=== PATIENT | male | born 1995 | race Caucasian/White ===

== ENCOUNTER 2021-03-11 13:00 | Emergency (ER) | payer BC, OTHER ==
[~2021-03-11] VITALS: Ht 180.3 cm; Wt 100.0 kg
[2021-03-11] MEDS ORDERED: TETANUS,DIPTH,PERTUSS P/F (BOOSTRIX) 0.5 ML VIAL IM ONE (13:30)
[2021-03-11] MEDS ORDERED: LIDOCAINE 1% INJ 20 ML 20 ML VIAL INJ ONE (13:30)
--- NOTE | 2021-03-11 13:55 | ED Psychosocial ---
General Chief Complaint: Psych/Social Disorder Stated Complaint: SUICIDE ATTEMPT Nursing Triage Note: PT AMBULATE TO ROOM FS04 WITH [facility] WITH C/O SUICIDE ATTEMPT. PT STATES THAT HE CUT HIS LEFT WRIST IN ATTEMPT TO KILL SELF. PT STATES THAT HE WAS HELP AND WANTS HELP. INFORMED OF THE ROLE OF THE ED AND THAT THE ED PROVIDES THE MEDICAL SCREENING AND THEN [facility] WILL BE CONTACTED FOR THE PSYCH SCREENING. PT INFORMED THAT THIS ED CANNOT CONTROL THE AMOUNT OF TIME IT WILL TAKE FOR MH SCREENING AND THAT THIS TIMEFRAME IS UNDER THE CONTROL OF [facility]. Source: patient, EMS History of Present Illness Date Seen by Provider: Mar 11, 2021 Time Seen by Provider: 13:08 Initial Comments 25-year-old woman presenting with EMS after having attempted to commit suicide by cutting his left wrist. He states he was using a kitchen knife after trying to. When it would not bleed enough to kill him and kept clogging he called 911. EMS picked him up and he states that he was interested in getting help. He has had a prior suicide attempt by taking pills when he was 18. He states that his wanted him to sign worse for friends and was a triggering factor for him. He has a adopted son with her as well as they had a daughter together. The son is 5 years old the daughter is 1-year-old. He was stressed and upset about not being in the same home with them anymore. He denies taking any drugs or alcohol today. He states that he just tried cutting his wrists because of her when it would not bleed Clotting he called for help. He still depressed and still wants help. He had been on antidepressants about 6 months ago but only took them for a month or 2. He does not have a current psychiatrist or therapist that he see s. Timing/Duration: just prior to arrival Severity: mild Associated Symptoms: anxiety, injury (cut left wrist), suicidal ideation Allergies and Home Medications Allergies Coded Allergies: No Known Allergies (Verified Allergy, Unknown, 03/11/21) Patient Home Medication List Home Medication List Reviewed: Yes Review of Systems Constitutional: No chills, No fever EENTM: no symptoms reported Respiratory: no symptoms reported Cardiovascular: no symptoms reported Gastrointestinal: no symptoms reported Genitourinary: no symptoms reported Musculoskeletal: other (mild pain at site of laceration) Skin: other (superficial laceration to left wrist) Psychiatric/Neurological: Depressed, Emotional Problems; Denies Numbness, Denies Paresthesia Past Sajkibf-Mrdvie-Gappzd Hx Patient Social History Tobacco Use?: No Smoking Status: Never a Smoker Smokeless Tobacco Frequency: Never a User Substance use?: No Alcohol Use?: No Pt feels they are or have been: No Immunizations Up To Date First/Initial COVID19 Vaccinat: 11/2020 Second COVID19 Vaccination Pravin: 12/2020 COVID19 Vaccine Table Inspector: CANDELARIO Past Medical History Surgery/Hospitalization HX: suicide attempt 18 yo Physical Exam Vital Signs - First Documented 03/11/21 13:00 Temp 37.0 Pulse 84 Resp 17 B/P (MAP) 133/87 (102) O2 Delivery Room Air Capillary Refill : Less Than 3 Seconds Height, Weight, BMI Height: '" Weight: lbs. oz. kg; 30.00 BMI Method: General Appearance: WD/WN, no apparent distress HEENT: PERRL/EOMI, pharynx normal Neck: non-tender, full range of motion, supple, normal inspection Respiratory: chest non-tender, lungs clear, normal breath sounds, no respiratory distress, no accessory muscle use Cardiovascular: normal peripheral pulses, regular rate, rhythm Gastrointestinal: normal bowel sounds, non tender, soft, no pulsatile mass Extremities: normal range of motion, non-tender, normal capillary refill, other (laceration to left wrist with bleeding controlled. ) Neurologic/Psychiatric: mgmt consultant II-XII nml as tested, no motor/sensory deficits, alert, oriented x 3, depressed affect Appearance/Memory: appropriate appearance Behavior/Eye Contact: cooperative, avoids eye contact Thoughts/Hallucinations: normal thought pattern, no apparent hallucination Skin: normal color, warm/dry, other (4.8 cm laceration to left wrist) Procedures/Interventions Wound Location: Upper Extremities (left wrist) Wound Length (cm): 4.8 Wound's Depth, Shape: linear, sub Q Wound Explored: clean Irrigated w/ Saline (ccs): 100 Anesthesia: 1% Lidocaine Volume Anesthetic (ccs): 6 Suture: Ethlion Suture Size: 4-0 Number of Sutures: 7 Layer Closure?: 1 Sterile Dressing Applied?: Yes Progress After obtaining verbal consent from the patient the wound was anesthetized with 1% plain lidocaine. A total of 60 mL were infiltrated into the wound. The wound was then scrubbed with chlorhexidine scrub soap and sterile water. No foreign bodies were seen. A total of 7 simple interrupted stitches of 4-0 Ethilon were placed to approximate the wound edges. Patient tolerated procedure well without any immediate complication. He has neurovascular and tendon intact both pre and post procedure. A sterile dressing was applied over the wound. Stitches out in 7 to 10 days. Progress/Results/Core Measures Results/Orders Lab Results Laboratory Tests Test 03/11/21 14:00 03/11/21 14:30 03/11/21 17:00 Range/Units White Blood Count 11.5 H 4.3-11.0 10^3/uL Red Blood Count 4.96 4.30-5.52 10^6/uL Hemoglobin 15.0 13.3-17.7 g/dL Hematocrit 44 40-54 % Mean Corpuscular Volume 88 80-99 fL Mean Corpuscular Hemoglobin 30 25-34 pg Mean Corpuscular Hemoglobin Concent 34 32-36 g/dL Red Cell Distribution Width 12.5 10.0-14.5 % Platelet Count 272 130-400 10^3/uL Mean Platelet Volume 8.4 L 9.0-12.2 fL Immature Granulocyte % (Auto) 0 % Neutrophils (%) (Auto) 78 H 42-75 % Lymphocytes (%) (Auto) 16 12-44 % Monocytes (%) (Auto) 5 0-12 % Eosinophils (%) (Auto) 0 0-10 % Basophils (%) (Auto) 0 0-10 % Neutrophils # (Auto) 9.0 H 1.8-7.8 X 10^3 Lymphocytes # (Auto) 1.8 1.0-4.0 X 10^3 Monocytes # (Auto) 0.6 0.0-1.0 X 10^3 Eosinophils # (Auto) 0.0 0.0-0.3 10^3/uL Basophils # (Auto) 0.1 0.0-0.1 10^3/uL Immature Granulocyte # (Auto) 0.0 0.0-0.1 10^3/uL Sodium Level 139 135-145 MMOL/L Potassium Level 4.3 3.6-5.0 MMOL/L Chloride Level 103 98-107 MMOL/L Carbon Dioxide Level 25 21-32 MMOL/L Anion Gap 11 5-14 MMOL/L Blood Urea Nitrogen 12 7-18 MG/DL Creatinine 0.95 0.60-1.30 MG/DL Estimat Glomerular Filtration Rate 98 BUN/Creatinine Ratio 13 Glucose Level 95 70-105 MG/DL Calcium Level 9.6 8.5-10.1 MG/DL Corrected Calcium 8.5-10.1 MG/DL Total Bilirubin 0.6 0.1-1.0 MG/DL Aspartate Amino Transf (AST/SGOT) 24 5-34 U/L Alanine Aminotransferase (ALT/SGPT) 29 0-55 U/L Alkaline Phosphatase 57 40-136 U/L Total Protein 7.8 6.4-8.2 GM/DL Albumin 4.8 H 3.2-4.5 GM/DL Salicylates Level < 0.3 L 5.0-20.0 MG/DL Acetaminophen Level < 10 L 10-30 UG/ML Serum Alcohol < 10 <10 MG/DL Urine Color YELLOW Urine Clarity CLEAR Urine pH 6.0 5-9 Urine Specific [place] 1.025 H 1.016-1.022 Urine Protein TRACE H NEGATIVE Urine Glucose (UA) NEGATIVE NEGATIVE Urine Ketones NEGATIVE NEGATIVE Urine Nitrite NEGATIVE NEGATIVE Urine Bilirubin NEGATIVE NEGATIVE Urine Urobilinogen 0.2 < = 1.0 MG/DL Urine Leukocyte Esterase NEGATIVE NEGATIVE Urine RBC (Auto) NEGATIVE NEGATIVE Urine RBC NONE /HPF Urine WBC NONE /HPF Urine Squamous Epithelial Cells RARE /HPF Urine Crystals NONE /LPF Urine Bacteria TRACE /HPF Urine Casts NONE /LPF Urine Mucus MODERATE H /LPF Urine Culture Indicated NO Urine Opiates Screen NEGATIVE NEGATIVE Urine Oxycodone Screen NEGATIVE NEGATIVE Urine Methadone Screen NEGATIVE NEGATIVE Urine Propoxyphene Screen NEGATIVE NEGATIVE Urine Barbiturates Screen NEGATIVE NEGATIVE Ur Tricyclic Antidepressants Screen NEGATIVE NEGATIVE Urine Phencyclidine Screen NEGATIVE NEGATIVE Urine Amphetamines Screen NEGATIVE NEGATIVE Urine Methamphetamines Screen NEGATIVE NEGATIVE Urine Benzodiazepines Screen NEGATIVE NEGATIVE Urine Cocaine Screen NEGATIVE NEGATIVE Urine Cannabinoids Screen POSITIVE H NEGATIVE SARS-CoV-2 RNA (RT-PCR) Not Detected Not Detecte My Orders Orders - DORIS MEIER MD Ua Culture If Indicated (03/11/21 13:12) Cbc With Automated Diff (03/11/21 13:12) Comprehensive Metabolic Panel (03/11/21 13:12) Alcohol (03/11/21 13:12) Drug Screen Stat (Urine) (03/11/21 13:12) Acetaminophen (03/11/21 13:12) Salicylate (03/11/21 13:12) Ekg Tracing (03/11/21 13:12) Bh Status Checks/Observation Q15M (03/11/21 13:12) Lidocaine 1% Inj 20 Ml (Xylocaine 1% Inj (03/11/21 13:30) Dipht,Pertuss(Acell),Tet Adult (Boostrix (03/11/21 13:30) Suture Set At Bedside (03/11/21 13:28) Wound Dressing-Ed (03/11/21 13:28) Covid 19 Inhouse Test (03/11/21 16:50) Ibuprofen Tablet (Motrin Tablet) (03/11/21 16:51) Acetaminophen Tablet (Tylenol Tablet) (03/11/21 16:51) Nicotine Patch (Nicoderm Patch) (03/11/21 19:42) Medications Given in ED Current Medications Medications Dose Ordered Sig/Miquel Route Start Time Stop Time Status Last Admin Dose Admin Diphtheria/ Tetanus/Acell Pertussis 0.5 ml ONCE ONCE IM 03/11/21 13:30 03/11/21 13:31 DC 03/11/21 13:47 0.5 ML Lidocaine HCl 20 ml ONCE ONCE INJ 03/11/21 13:30 03/11/21 13:31 DC 03/11/21 13:53 20 ML Vital Signs/I&O 03/11/21 13:00 Temp 37.0 Pulse 84 Resp 17 B/P (MAP) 133/87 (102) O2 Delivery Room Air Blood Pressure Mean: 102 Progress Progress Note #1: Progress Note Obtain labs to medically screen the patient. Repair laceration of his left wrist. Urine drug screen to additionally screen the patient for medical conditions causing his symptoms. Provided his labs are clear and stable he will be medically cleared for evaluation by mental health. Tetanus booster with Tdap since he was unsure of his last tetanus shot Progress Note #2: Time: 15:13 Progress Note Labs are all stable without acute significant abnormality. He had no drugs of abuse other than marijuana nor evidence of alcohol ingestion, acetaminophen, salicylate. His electrocardiogram shows sinus rhythm without ectopy or ischemia. His wound was repaired and dressed on his left wrist. He is medically clear and stable to be evaluated by mental health. Progress Note #3: Time: 18:00 Progress Note Patient was screened by [facility] and deemed appropriate for inpatient placement. His information was faxed to [facility] in [place] and they called back to speak to him on the phone. Progress Note #4: Time: 19:15 Progress Note Covid swab PCR is negative and not detected. Dr. Dela Cruz is the accepting physician for [facility] so will let them know that it is negative and have [facility] arrange transport. Pt had requested to have his Mom and family transport him but since that is not secure transport like what Mental [facility] will provide will need him to go by them instead of family. Pt requested Nicotine patch so will order 21 mg patch. Progress Note #5: Time: 21:04 Progress Note customer service driver from [facility] is taking patient in secure transport to [facility]. Initial ECG Impression Date: Mar 11, 2021 Initial ECG Impression Time: 13:08 Initial ECG Rate: 77 Initial ECG Rhythm: Normal Sinus Initial ECG Comparisson: No Previous ECG Available Comment Normal sinus rhythm with a heart rate of [address] interval [address] elevation. QT interval 365 ms with a QTc interval 414 ms. No prior tracing available for comparison. Departure Impression Primary Impression: Depression with suicidal ideation Additional Impression: Laceration of left wrist without complication Qualified Codes: S61.512A - Laceration without foreign body of left wrist, initial encounter Disposition: 65 XFER TO PSYCH HOSP/UNIT Condition: Stable Transfer Transfer Reason: Exceeds level of care (Needs Psychiatric Inpatient care) Time Spoke to Accepting Phy: 18:[address] Dela Cruz will be the accepting physician for [facility] and once the Covid test comes back negative then he can have transport arranged to take him. Patient wants his family to take him but he needs to go by secure transport so will have [facility] transport him. Transfer Facility: [facility] in [place] Method of Transfer: Private Vehicle ([facility]) DORIS MEIER MD Mar 11, 2021 13:55
[2021-03-11 14:19] LABS: HEMATOCRIT 44 % (40-54); MEAN CORPUSCULAR HEMOGLOBIN 30 pg (25-34); MEAN CORPUSCULAR HGB CONC 34 g/dL (32-36); MEAN CORPUSCULAR VOLUME 88 fL (80-99); MEAN PLATELET VOLUME 8.4 fL (9.0-12.2); PLATELET COUNT 272 10^3/uL (130-400); WHITE BLOOD COUNT 11.5 10^3/uL (4.3-11.0)
[2021-03-11 14:20] LABS: BASOPHILS # (AUTO) 0.1 10^3/uL (0.0-0.1); BASOPHILS % (AUTO) 0 % (0-10); EOSINOPHILS % (AUTO) 0 % (0-10); LYMPHOCYTES # (AUTO) 1.8 X 10^3 (1.0-4.0); LYMPHOCYTES % (AUTO) 16 % (12-44); MONOCYTES # (AUTO) 0.6 X 10^3 (0.0-1.0); MONOCYTES % (AUTO) 5 % (0-12); NEUTROPHILS % (AUTO) 78 % (42-75)
[2021-03-11 14:43] LABS: BUN/CREATININE RATIO 13; CALCIUM 9.6 MG/DL (8.5-10.1); CARBON DIOXIDE 25 MMOL/L (21-32); CHLORIDE 103 MMOL/L (98-107); CREATININE SERUM 0.95 MG/DL (0.60-1.30); GFR ESTIMATED 98; GLUCOSE 95 MG/DL (70-105); POTASSIUM 4.3 MMOL/L (3.6-5.0); SODIUM 139 MMOL/L (135-145)
[2021-03-11 14:44] LABS: ACETAMINOPHEN < 10 UG/ML (10-30); ALANINE AMINOTRANSFERASE 29 U/L (0-55); ALBUMIN 4.8 GM/DL (3.2-4.5); ALKALINE PHOSPHATASE 57 U/L (40-136); BILIRUBIN,TOTAL 0.6 MG/DL (0.1-1.0); SALICYLATE < 0.3 MG/DL (5.0-20.0); TOTAL PROTEIN 7.8 GM/DL (6.4-8.2)
[2021-03-11 14:57] LABS: BACTERIA,URINE TRACE /HPF; BILIRUBIN,URINE NEGATIVE (NEGATIVE); CLARITY,URINE CLEAR; COLOR,URINE YELLOW; GLUCOSE, URINE (UA) NEGATIVE (NEGATIVE); KETONES,URINE NEGATIVE (NEGATIVE); LEUKOCYTE ESTERASE ,URINE NEGATIVE (NEGATIVE); NITRITE,URINE NEGATIVE (NEGATIVE); PROTEIN,URINE TRACE (NEGATIVE)
[2021-03-11 14:58] LABS: SQUAMOUS EPITHELIAL CELL,UR RARE /HPF
[2021-03-11 15:01] LABS: AMPHETAMINE SCREEN, URINE NEGATIVE (NEGATIVE); BENZODIAZEPINES SCREEN URINE NEGATIVE (NEGATIVE); CANNABINOID SCREEN, URINE POSITIVE (NEGATIVE); COCAINE SCREEN URINE NEGATIVE (NEGATIVE)
[2021-03-11 15:02] LABS: BARBITURATE SCREEN URINE NEGATIVE (NEGATIVE); METHADONE STAT NEGATIVE (NEGATIVE); METHAMPHETAMINE SCREEN URINE S NEGATIVE (NEGATIVE); OPIATE SCREEN URINE NEGATIVE (NEGATIVE); OXYCODONE STAT NEGATIVE (NEGATIVE); PROPOXYPHENE STAT NEGATIVE (NEGATIVE); TRICYCLIC ANTIDEPRESSANTS SCRE NEGATIVE (NEGATIVE)
[2021-03-11] MEDS ORDERED: IBUPROFEN 800 MG (MOTRIN) TAB PO STA (16:51)
[2021-03-11] MEDS ORDERED: ACETAMINOPHEN 500 MG TAB (TYLENOL) PO STA (16:51)
[2021-03-11] MEDS ORDERED: NICOTINE 21 MG (NICODERM) PATCH TD STA (19:42)
[2021-03-11 21:12] VITALS: BP 120/72
== END 2021-03-11 21:15 ==
LOC: ER FS 13:02
DX: S61.512A Laceration without foreign body of left wrist, initial encounter (principal); F32.9 Major depressive disorder, single episode, unspecified; Z23 Encounter for immunization; Z20.822 Contact with and (suspected) exposure to COVID-19; X78.1XXA Intentional self-harm by knife, initial encounter
CPT/HCPCS: 36415; 80053; 80306; 81000; 85025; 87636; 93005; 99283; G0480 ×3; 80320; 80329; 90715